=== PATIENT | female | born 1950 | race American Indian/Alaskan Native ===

== ENCOUNTER 2016-10-18 10:37 | Outpatient (CLI) | payer MEDICARE ==
--- NOTE | 2016-10-18 11:38 | XRay Report ---
Left ankle: Pain and swelling. There is minimal if any swelling identified. There is no apparent joint effusion. No fracture and no bone lesion identified. There is normal alignment of the ankle joint. Impression: No significant findings.
== END 2016-10-18 10:38 | disposition home or self-care (01) ==
LOC: XRAY 10:37
PROVIDERS: ATTEND Internal Medicine
DX: M25.572 Pain in left ankle and joints of left foot (principal); M25.472 Effusion, left ankle